=== PATIENT | female | born 2000 | race Hispanic/Latino ===

== ENCOUNTER 2023-04-05 10:37 | Observation (INO) | payer MEDICAID, OTHER ==
[2023-04-05] VITALS (10 sets, daily range): BP systolic 98–132; BP diastolic 54–90; PULSE 62–84; RESP 18–22; O2SAT 100
[~2023-04-05] VITALS: Ht 162.6 cm; Wt 70.8 kg
[2023-04-05 11:35] LABS: APPEARANCE,URINE CLEAR (CLEAR); BILIRUBIN,URINE NEGATIVE (NEGATIVE); COLOR,URINE YELLOW (YELLOW); GLUCOSE, URINE (UA) NEGATIVE (NEGATIVE); KETONES,URINE >=80 mg/dL (NEGATIVE); LEUKOCYTE ESTERASE ,URINE 75 Leu/uL (NEGATIVE); NITRATE,URINE NEGATIVE (NEGATIVE); OCCULT BLOOD,URINE NEGATIVE (NEGATIVE); PROTEIN,URINE 50 mg/dL (NEGATIVE)
[2023-04-05 11:37] LABS: HCG,QUALITATIVE URINE POSITIVE (NEGATIVE)
[2023-04-05 11:38] LABS: BASOPHILS # (AUTO) 0.02 K/uL (0.00-0.20); BASOPHILS % (AUTO) 0.3 % (0.0-5.0); EOSINOPHILS # (AUTO) 0.07 K/uL (0.00-0.70); HEMATOCRIT 42.3 % (36-48); IMMATURE GRANULOCYTE ABSOLUTE 0.02 K/uL (0-1); LYMPHOCYTES # (AUTO) 1.2 K/uL (1.0-4.8); LYMPHOCYTES % (AUTO) 16.8 % (21.0-51.0); MEAN CORPUSCULAR HEMOGLOBIN 28.3 pg (27.0-33.0); MEAN CORPUSCULAR HGB CONC 33.6 g/dL (32.0-36.0); MEAN CORPUSCULAR VOLUME 84.3 fL (79-99); MONOCYTES # (AUTO) 0.5 K/uL (0.1-1.0); MONOCYTES % (AUTO) 7.4 % (3.0-13.0); NEUTROPHILS # (AUTO) 5.4 K/uL (1.8-7.7); NEUTROPHILS % (AUTO) 74.2 % (40.0-77.0); PLATELET COUNT (AUTO) 174 K/uL (130-400); RED BLOOD CELL COUNT(AUTO) 5.02 MIL/uL (4.00-5.50); RED CELL DISTRIBUTION WIDTH 13.2 % (11.0-15.5); WHITE BLOOD COUNT (AUTO) 7.2 K/uL (4.8-10.8)
[2023-04-05 11:43] LABS: AMPHET/METH SCREEN,URINE NEGATIVE (NEGATIVE); BARBITURATE SCREEN, URINE NEGATIVE (NEGATIVE); BENZODIAZEPINES SCREEN,URINE NEGATIVE (NEGATIVE); CANNABINOID SCREEN,URINE POSITIVE (NEGATIVE); COCAINE SCREEN,URINE NEGATIVE (NEGATIVE); OPIATE SCREEN,URINE NEGATIVE (NEGATIVE); PHENCYCLIDINE SCREEN,URINE NEGATIVE (NEGATIVE)
[2023-04-05 11:48] LABS: ADD UA MICROSCOPIC YES
[2023-04-05 11:52] LABS: CREATININE 0.7 mg/dL (0.5-1.5); POTASSIUM 3.3 mmol/L (3.5-5.1)
[2023-04-05 11:52] LABS: BACTERIA,URINE FEW /HPF (None Seen); MUCUS,URINE RARE LPF (None Seen); RBC,URINE 0-1 /HPF (0-1); SQUAMOUS EPITHELIAL CELL,UR RARE /HPF (0-2)
[2023-04-05 12:19] LABS: BILIRUBIN,TOTAL 0.4 mg/dL (0.2-1.0); TOTAL PROTEIN, SERUM 8.2 g/dL (6.0-8.3)
[2023-04-05] MEDS ORDERED: ACETAMINOPHEN 325 MG TAB PO ONE (15:00)
[2023-04-05] MEDS ORDERED: MORPHINE 4 MG SYG IVP ONE (16:00)
[2023-04-05] MEDS ORDERED: 0.9%NACL 1000ML 1,000 ML IV ONE (16:00)
[2023-04-05] MEDS ORDERED: ONDANSETRON 4MG INJ IVP ONE (16:00)
[2023-04-05] MEDS ORDERED: MEPERIDINE-PF 25 MG/ML SYG IVP PRN (18:30)
[2023-04-05] MEDS ORDERED: MEPERIDINE-PF 50 MG/ML SYG IVP PRN (18:30)
[2023-04-05] MEDS ORDERED: PROMETHAZINE HCL 25 MG/ML 1ML AMPULE IM PRN (18:30)
[2023-04-05] MEDS: LACTATED RINGERS 1000ML 1,000 ML IV SCH (18:42)
[2023-04-05] MEDS ORDERED: CEFAZOLIN SODIUM 2 GM VIAL ONE (20:15)
[2023-04-05] MEDS: CEFAZOLIN SODIUM 2 GM VIAL IVPB SCH (20:33)
[2023-04-06] MEDS: LACTATED RINGERS 1000ML 1,000 ML IV SCH (02:04)
[2023-04-06] MEDS: CEFAZOLIN SODIUM 2 GM VIAL IVPB SCH (03:48)
[2023-04-06 04:33] VITALS: BP 110/68; PULSE 72; RESP 20
== END 2023-04-06 10:15 | disposition home or self-care (01) ==
LOC: EDH 10:37 → WSH 10:38
PROVIDERS: ADMIT Obstetrics & Gynecology; ATTEND Obstetrics & Gynecology
DX: O26.891 Other specified pregnancy related conditions, first trimester (principal); R10.30 Lower abdominal pain, unspecified; N83.201 Unspecified ovarian cyst, right side; O99.512 Diseases of the respiratory system complicating pregnancy, second trimester; J45.909 Unspecified asthma, uncomplicated; O34.81 Maternal care for other abnormalities of pelvic organs, first trimester; O21.9 Vomiting of pregnancy, unspecified; Z3A.01 Less than 8 weeks gestation of pregnancy; Z88.8 Allergy status to other drugs, medicaments and biological substances; Z79.899 Other long term (current) drug therapy
CPT/HCPCS: 96361 ×2; 96365; 96375; 99285; 80053; 80305; 84702; 85025; 87088; 81001; 81025; 36415; 76801; 96366; 94761; G0378 ×16; J7120 ×3; J7030; J2405; J2270; J0690 ×2; 96360